=== PATIENT | female | born 1980 | race Caucasian/White ===

== ENCOUNTER 2022-06-19 08:58 | Day surgery (SDC) | payer OTHER, SELFPAY ==
[2022-06-19] VITALS (17 sets, daily range): BP systolic 108–128; BP diastolic 63–82; PULSE 60–79; RESP 14–20; TEMP 36.6–37.4; O2SAT 97–100; BMI 37.5
--- NOTE | 2022-06-19 09:52 | PM.PROC ---
Procedure Note Time Seen by Provider: 09:52 Date Seen: 06/19/22 Date of procedure: 06/19/22 Will [facility] bill your pro fee for this procedure?: Yes Procedure: Preoperative diagnosis: 42-year-old 2 para 2 menometrorrhagia with secondary anemia Postoperative diagnosis: Same Procedure: Total laparoscopic hysterectomy, lysis of adhesions bilateral salpingectomy, diagnostic cystoscopy. Anesthesia: General endotracheal, local Surgeon: Shruthi Gomez MD Assist: Jeannine Page MD Estimated blood loss: 150 mL. IV Fluid: 2700 mL Urine output: 400 mL, clear urine at the end of the procedure Drains: Edgar to gravity Specimen: 1. Uterus. 2. Right fallopian tube with paratubal cyst and left fallopian tube to pathology. Findings: On exam under anesthesia: The uterus was mid position, approximately 10 week size, mobile without nodularity or masses palpable. Adnexa without mass or fullness palpable. On laparoscopy: Normal appearing uterus and left fallopian tube. The right fallopian tube had approximately 1.5-2.0 cm paratubal cyst. There were multiple thin adhesions of the sigmoid colon to the left pelvic sidewall and left adnexa and some adhesions of the bilateral fallopian tubes to both ovaries. No endometriosis identified. Both ovaries were normal.. Liver edge appeared normal. The gallbladder was surgically absent. Procedure: Salina was taken to the operating room where general anesthetic was found to be adequate. She was placed in the dorsal lithotomy position and an exam under anesthesia was performed with findings stated above. She was then prepped and draped in a normal sterile manner. A Edgar catheter was placed. A bivalve speculum was placed in the vaginal canal. A single-toothed tenaculum was placed on the anterior lip of the cervix, in the uterus sounded to 11 cm. A large VCare uterine manipulator was then placed. The tenaculum and speculum were removed from the cervix. Attention was then turned to performing the laparoscopic portion of the procedure. All incisions were infiltrated with 0.5 % Marcaine prior to incising the skin. A vertical, infraumbilical 1 cm incision was made. An 11 mm trocar was then placed under direct visualization. The abdomen was then insufflated with CO2 gas to a pressure of 15 mm of mercury. Two, pelvic ports were then placed approximately 3-4 finger breaths medial to the ischial crests. The trocar in the RLQ = 5mm, LLQ = 11mm. These were placed under direct visualization. A diagnostic laparoscopy was performed with the above findings stated. The thin adhesions of the sigmoid colon were taken down with combination of blunt and sharp dissection using laparoscopic scissors. This dissection took 15 minutes of extra time above and beyond what a usual hysterectomy would require. Attention was then turned to performing the hysterectomy. Both ureters were visualized in the normal position bilaterally. The left fallopian tube was grasped and removed with sequential pedicles using the dissecting, PowerSeal blunt tip dissecting forceps. The left side of the hysterectomy was performed using the PowerSeal dissecting forceps. The 1st pedicles were starting with the broad ligament that was cauterized and and bisected. In sequence show pedicles were formed to divide the utero-ovarian ligament. Then sequential pedicles were made through the broad ligament. The posterior leaf of the broad ligament was then divided and sequential pedicles carried down to the level of the VCare cup. The anterior leaf of the broad ligament was then divided down to the level of the anterior aspect of the VCare cup and a bladder flap created. The uterine vessels were then skeletonized. The uterine vessels were then cauterized and divided. Then excess tissue was cleared over the top of the VCare cup using the dissecting forceps. The right salpingectomy and right side of the hysterectomy were then performed in a similar manner. The Ligasure Valleylab pen with the spatula attachment was then used to perform the colpotomy incising around the VCare cup. The uterus was removed and the fundus placed in the vaginal canal to maintain insufflation. The vaginal cuff was then reapproximated using 2-0 V lock suture in a running manner. All the pedicles and vaginal cuff were then closely visualized and hemostasis obtained with bipolar cautery using the PowerSeal dissecting forceps or the Valleylab pen with the spatula. The the uterus was removed from the vaginal canal and sent to pathology. The Edgar catheter was briefly removed. A diagnostic cystoscopy was performed using normal saline as the insufflation medium. The dome of the bladder was noted to be without injury and no evidence of any sutures from the vaginal cuff causing injury. Normal urine flow was noted through both ureteral orifices. Fluorescein IV was used to visualize the urine more easily. The Edgar catheter was then replaced. Attention was then returned to the abdomen where hemostasis was verified. One figure of 8 suture using 0-Vicryl with intracorporeal knot tying closure was placed to obtain hemostasis on the right side of the vaginal cuff. Latoya was applied to the vaginal cuff. The CO2 pressure decreased to 8mmHG and hemostasis verified. The fascia in the LLQ incision was approximated with 0-Vicryl suture using the Nuno Waldrop fascial closure device. This was closed under direct visualization with the laparoscope. The fascia in the umbilical incision was reapproximated using 0 Vicryl on a UR 6 needle. All trocars were removed under direct visualization. CO2 gas was allowed to escape the infraumbilical port prior to its removal. All skin incisions were re-approximated using 4-0 Monocryl in a running subcuticular manner, Exofin skin adhesive gel and adhesive bandages placed. The patient tolerated this procedure well. Sponge, lap and instrument counts were correct x2 at the end of the procedure and the patient was taken to the recovery area in stable condition. The patient received 2 gm IV ancef and a TAPS block was placed by anesthesia prior to the procedure. She received 15 mg IV Toradol prior to being awakened from anesthesia. Surgeon: Shruthi Gomez MD
[2022-06-19 10:04] LABS: Hemoglobin* 11.9 gm/dL (12.0-16.0)
[2022-06-19 10:12] LABS: Ur HCG Qualitative* Negative (Negative)
[2022-06-19] MEDS: LACTATED RINGERS 1000 ML 1,000 ML 100 ML IV (10:20)
[2022-06-19] MEDS: SODIUM CHLORIDE 0.9 % (FLUSH) 10 ML SYRINGE IVF (10:24)
[2022-06-19] MEDS: LACTATED RINGERS 1000 ML 1,000 ML 45 ML IV ×2 (11:44→13:16)
[2022-06-19] MEDS: BUPIVACAINE 0.5% 30 ML INJECTION (11:50)
[2022-06-19] MEDS: CEFAZOLIN 2 GM INJ IVP (12:00)
--- NOTE | 2022-06-19 13:07 | W.PM.NB ---
Nerve Block Nerve Block Date Seen: 06/19/22 Type of block requested by surgeon for post-operative analgesia: TAP Side: bilateral Time out performed: Yes Verification of patient name: Yes Verification of date of : Yes Site marking: site marked Name of person performing procedure: Charles Continuous monitoring Was continuous monitoring of O2 sat, B/P, director of cardiac rehabilitation, recorded every 15 minutes?: Yes Procedure Checklist: sterile prep, needles and gloves Ultrasound guided. Images saved: Yes Medications given in 5ml increments after negative aspiration: Marcaine %: 0.25 mL: 30 Needle gauge: 20 and Exparel mL: 10 Patient tolerated procedure well: Yes Additional comments: Needle noted adjacent to nerve Block Charges Block Charge (with Pro Fee): TAP Bilateral Use of Ultrasound Machine for Block: Yes- US Guidance/pain block
--- NOTE | 2022-06-19 15:07 | W.ANESCHARGE ---
Anesthesia Charges Start Date/Time Anesthesia Start Date: 06/19/22 Anesthesia Start Time: 11:49 Stop Date/Time Anesthesia Stop Date: 06/19/22 Anesthesia Stop Time: 15:33 Summary Emergency: No
--- NOTE | 2022-06-19 15:32 | W.ANESCHARGE ---
Anesthesia Charges Start Date/Time Anesthesia Start Date: 06/19/22 Anesthesia Start Time: 11:49 Stop Date/Time Anesthesia Stop Date: 06/19/22 Anesthesia Stop Time: 15:33 Summary Emergency: No
--- NOTE | 2022-06-19 15:39 | P.PCN_ITS ---
Procedure Note Date Seen: 06/19/22 Date of procedure: 06/19/22 Will [facility] bill your pro fee for this procedure?: Yes Pre-op diagnosis: 42 yo with menometrorrhagia and secondary anemia Post-op diagnosis: same Procedure: Total laparoscopic hysterectomy, lysis of adhesions, bilateral salpingectomies, diagnostic cystoscopy Procedure Description: FINDINGS: See operative report by Dr. Gomez. PROCEDURE NOTE: Please see the operative report by Dr. Gomez for full details of the procedure. I was asked to assist. I was scrubbed in for the entire procedure until closure of the abdominal incisions. I provided assistance with laparoscopic port placement, lysis of adhesions, visualization and retraction, and with the hysterectomy and bilateral salpingectomies from the right side, as well as with hemostasis and closure of the vaginal cuff. Anesthesia: GETA, local and other (TAP block) Surgeon: Shruthi Gomez MD Regional Sales Director: Jeannine Page Estimated blood loss (mL): 150 IV fluids (mL): 2,700 Urine output (mL): 400 Pathology: specimen obtained, sent to pathology (Uterus, bilateral fallopian tubes, right paratubal cyst) Condition: stable Disposition: PACU
--- NOTE | 2022-06-19 15:58 | SUR.PHASEI ---
patient met discharge criteria per anesthesia
[2022-06-19] MEDS: KETOROLAC 30 MG/ML inj IVP ×2 (17:21→23:34)
[2022-06-19] MEDS: LACTATED RINGERS 1000 ML 1,000 ML 125 ML IV (18:20)
[2022-06-19] MEDS: SIMETHICONE 80 MG TAB.CHEW 160 MG PO (23:44)
[2022-06-20 05:30] VITALS: BP 125/81; PULSE 71; RESP 16; TEMP 37.2
[2022-06-20 05:32] LABS: Hemoglobin* 10.3 gm/dL (12.0-16.0)
[2022-06-20] MEDS: KETOROLAC 30 MG/ML inj IVP (05:34)
[2022-06-20 08:15] VITALS: BP 118/81; PULSE 72; RESP 16; TEMP 36.7; O2SAT 100
[2022-06-20] MEDS: ACETAMINOPHEN 325 MG TABLET 1000 MG PO (08:16)
[2022-06-20] MEDS: CITALOPRAM HYDROBROMIDE 20 MG TABLET PO (08:17)
--- NOTE | 2022-06-20 08:51 | P.DS_ITS ---
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 Indication for surgery: Abnormal uterine bleeding. She had an uncomplicated surgery. Postoperative course has been uneventful. Vitals have been stable. She has remained afebrile. Today, on postoperative day 1, she reports the pain is well controlled. She has been able to ambulate Without difficulty. She is tolerating regular diet. She is passing flatus. Edgar catheter has been removed, and she is voiding without difficulty. 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 GENERAL APPEARANCE: Alert, cooperative female in no acute distress. MOOD & AFFECT: Normal. ABDOMEN: Soft, mildly distended and appropriately tender. Positive bowel sounds. : Spotting EXTREMITIES: Nonedematous. Well perfused. Nontender. NEURO: Intact. 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 - DS: Data Data Completed and Pending Labs on day of discharge: Labs from last 24 hours 06/20/22 06/19/22 06/19/22 05:20 09:56 09:56 Hgb 10.3 L 11.9 L Urine HCG, Qual Blood Type A Positive Antibody Screen NEGATIVE 06/19/22 09:45 Hgb Urine HCG, Qual Negative Blood Type Antibody Screen Procedures Procedures: Procedures Operation Date: 06/19/22 10:35 Actual Procedure Side Surgeon p Total Lap Hysterectomy, Bilateral Salpingectomy, Diagnostic Cystoscopy, Lysis of Adhesions Shruthi Gomez MD Discharge Plan Discharge Disposition: Home, Self-Care Discharging Surgeon: Maite Mendez Follow-Up Appointment: With Shruthi Clark MD in 2-3 weeks for postoperative exam Prescriptions: New docusate sodium 100 mg Capsule 100 mg PO BID PRN (Reason: Constipation) Qty: 100 0RF ibuprofen 600 mg Tablet 600 mg PO Q6H 14 Days Qty: 60 0RF oxycodone 5 mg Tablet 5 mg PO 3XD PRN (Reason: Moderate Pain) 7 Days Qty: 21 0RF Continued ketoconazole 2 % shampoo 1 applic topical .1XW PRN (Reason: itching) Qty: 120 2RF citalopram 20 mg tablet 20 mg PO QDAY epinephrine 0.3 mg/0.3 mL auto-injector 0.3 mg IM ONCE PRN magnesium gluconate [Mag-G] 27 mg magnesium (500 mg) tablet 54 mg PO QDAY Label Comments: Patient takes this twice per week. Fish Oil 100-160-1,000 mg capsule PO DAILY cholecalciferol (vitamin D3) 25 mcg (1,000 unit) capsule 25 mcg PO QDAY Discontinued ferrous gluconate 324 mg (38 mg iron) tablet 324 mg PO QDAY peg 3350-electrolytes [Golytely] 236-22.74-6.74 -5.86 gram recon soln 240 ml PO Q10M Qty: 4000 0RF Rx Instructions: until fecal effluent is clear Activity Level: Activity as Tolerated, No strenuous activity and No Weight Bearing Activity Detail: See activity restrictions below. Discharge Diet: Regular Patient Instructions: Surgical Site Infections (DC), Hysterectomy (DC) Additional Instructions: Discharge instructions were reviewed with the patient including signs and symptoms of infection and medications to use for pain.? ? No lifting greater than 20 pounds for 3 weeks. Nothing per vagina for 6 weeks. Off work or school for at least 4 weeks. No strenuous or core exercise for 3 weeks. No soaking the incisions in a tub or pool for 2 weeks. No restrictions for showering. Walking and walking up and down stairs is safe as soon as you arrive home. ? Follow up with your surgeon in 2-3 weeks for a postoperative exam.. Forms: Work/School Release Follow-up: Shruthi Gomez MD [Staff Physician] - Radha Ness DO [Primary Care Provider] - Discharge Orders: Discharge Order (Routine); Ordered 06/20/22 Ordered By: Maite Mendez
[2022-06-20] MEDS: IBUPROFEN 600 MG TABLET PO (09:39)
== END 2022-06-20 10:05 | disposition home or self-care (01) ==
LOC: OR 09:11 → OB 09:13
PROVIDERS: PCP Family Medicine; Visit Provider Obstetrics & Gynecology
PROC: 0UT94ZZ Resection of Uterus, Percutaneous Endoscopic Approach (ICD-10-PCS; CPT 58571; principal; 2022-06-19 10:15)
DX: N92.1 Excessive and frequent menstruation with irregular cycle (principal); D50.0 Iron deficiency anemia secondary to blood loss (chronic); N83.8 Other noninflammatory disorders of ovary, fallopian tube and broad ligament; N73.6 Female pelvic peritoneal adhesions (postinfective); E66.9 Obesity, unspecified; Z68.37 Body mass index [BMI] 37.0-37.9, adult
CPT/HCPCS: 58571; 00840; 36415; 64488; 76942; 81025; 85018; 86850; 86900; 86901; 88307; A9270; C9290; J0330; J0690; J1100; J1885; J2250; J2405; J2704; J3010; J3475; J3490; J7120

== ENCOUNTER 2022-08-20 12:54 | Outpatient (CLI) | payer OTHER, SELFPAY ==
--- NOTE | 2022-08-20 13:00 | CRLHL7_ITS ---
For Patients: As a result of the Century Cures Act, medical imaging exams and procedure reports are released immediately into your electronic medical record. You may view this report before your referring provider. If you have questions, please contact your health care provider. BILATERAL SCREENING MAMMOGRAM WITH COMPUTER-AIDED DETECTION AND TOMOSYNTHESIS TECHNIQUE: CC and MLO views were obtained. These mammographic images have been obtained using full-field digital technique. These mammographic images were interpreted with the benefit of computer-aided detection. Breast Tomosynthesis was used in this interpretation. COMPARISON FILM: 08/16/21, 04/05/20. FINDINGS: There are scattered areas of fibroglandular density IMPRESSION: There is no radiographic evidence for malignancy. ASSESSMENT: BI-RADS Category 1: Negative RECOMMENDATION: Routine screening mammogram in 1 year. A lay language report of this examination will be provided to the patient. Danial Gil M.D. Diagnostic Radiologist [email or web address] PRAFUL/Dictated by: Danial Gil MD @ 08/21/2022 9:09:00 AM (Electronically Signed)
== END 2022-08-20 12:55 | disposition home or self-care (01) ==
LOC: MAMMO 12:55
PROVIDERS: PCP Family Medicine; Visit Provider Family Medicine
DX: Z12.31 Encounter for screening mammogram for malignant neoplasm of breast (principal)
CPT/HCPCS: 77063; 77067

== ENCOUNTER 2022-10-01 10:30 | Outpatient (RCR) | payer OTHER, SELFPAY | END 2022-11-08 08:49 | disposition home or self-care (01) | PROVIDERS: PCP Family Medicine; Visit Provider Family Medicine | DX: M75.21 Bicipital tendinitis, right shoulder (principal); Z51.89 Encounter for other specified aftercare | CPT/HCPCS: 97110; 97112; 97140; 97161 ==

== ENCOUNTER 2023-09-27 14:12 | Outpatient (CLI) | payer OTHER, SELFPAY ==
--- NOTE | 2023-09-27 14:40 | MM_ITS ---
Patient: OSITO AGUIAR Facility:?[facility] Patient ID:?[id number] Site Patient ID:?[id number]. Site :?[id number] Study:?XRay-Breast Bilateral 3D-09/27/2023 2:34:45 PM Ordering Physician:Yarelis Final Report: BILATERAL SCREENING MAMMOGRAM WITH COMPUTER-AIDED DETECTION AND TOMOSYNTHESIS TECHNIQUE: CC and MLO views were obtained. These mammographic images have been obtained using full-field digital technique. These mammographic images were interpreted with the benefit of computer-aided detection. Breast Tomosynthesis was used in this interpretation. COMPARISON FILM: 08/20/22, 08/16/21, 04/05/20. FINDINGS: There are scattered areas of fibroglandular density. IMPRESSION: There is no radiographic evidence for malignancy. ASSESSMENT: BI-RADS Category 1: Negative RECOMMENDATION: Routine screening mammogram in 1 year. A lay language report of this examination will be provided to the patient. Danial Gil M.D. Diagnostic Radiologist [email or web address] DSM/sp R& Transcribed: 3:01 p.m. SP/Dictated by: Danial Gil MD @ 09/30/2023 10:41:00 AM Signed by:?Danial Gil MD @09/30/2023 3:54:17 PM (Electronic Signature)
== END 2023-09-27 14:13 | disposition home or self-care (01) ==
LOC: MAMMO 14:13
PROVIDERS: PCP Family Medicine; Visit Provider Family Medicine
DX: Z12.31 Encounter for screening mammogram for malignant neoplasm of breast (principal)
CPT/HCPCS: 77063; 77067

== ENCOUNTER 2024-11-06 09:34 | Outpatient (CLI) | payer OTHER, SELFPAY ==
--- NOTE | 2024-11-06 09:45 | CRLHL7_ITS ---
For Patients: As a result of the Century Cures Act, medical imaging exams and procedure reports are released immediately into your electronic medical record. You may view this report before your referring provider. If you have questions, please contact your health care provider. INDICATION: BILATERAL SCREENING MAMMOGRAM, ASYMPTOMATIC 44 YEAR OLD FEMALE COMPARISON: 09/27/23, , 08/16/21 TECHNIQUE: CC and MLO views were obtained. These mammographic images have been obtained using full-field digital technique. These mammographic images were interpreted with the benefit of computer aided detection and tomosynthesis. BREAST COMPOSITION: There are scattered areas of fibroglandular density. FINDINGS: No suspicious findings. ASSESSMENT: BI-RADS 1 Negative RECOMMENDATION: Annual screening mammogram. A lay language report of this examination will be provided to the patient. Dictated by: Danial Gil MD @ 11/06/2024 12:34:45 (Electronically Signed)
== END 2024-11-06 09:35 | disposition home or self-care (01) ==
LOC: MAMMO 09:34
PROVIDERS: PCP Family Medicine; Visit Provider Family Medicine
DX: Z12.31 Encounter for screening mammogram for malignant neoplasm of breast (principal)
CPT/HCPCS: 77063; 77067

== ENCOUNTER 2025-06-14 12:06 | Outpatient (CLI) | payer OTHER, SELFPAY ==
[2025-06-14 13:23] LABS: PCR FLU A Negative PCR FLU A (Negative); PCR FLU B Negative PCR FLU B (Negative); SARS PCR* Negative SARS-CoV-2 (Negative)
== END 2025-06-14 12:07 | disposition home or self-care (01) ==
LOC: NFLDUCREF 12:06
PROVIDERS: PCP Family Medicine; Visit Provider Physician Assistant Surgical
DX: J98.9 Respiratory disorder, unspecified (principal)
CPT/HCPCS: 87636